=== PATIENT | female | born 2000 | race Caucasian/White ===

== ENCOUNTER 2020-01-27 12:42 | Emergency (ER) | payer SELFPAY ==
[2020-01-27] MEDS ORDERED: Lorazepam 2 MG/ML VIAL ONE (13:06)
[2020-01-27] MEDS ORDERED: Acetaminophen 325 MG TAB ONE (14:00)
[2020-01-27] MEDS ORDERED: Ondansetron ODT 4 MG TAB ONE (14:00)
[2020-01-27 14:14] LABS: Bilirubin Negative (Negative); Blood, Urine Negative (Negative); Clarity Turbid (Clear); Glucose, Urine (Dipstick) Normal (Negative); Ketone, Urine 40 mg/dL (Negative); Leukocyte 75 Leu/uL (Negative); Nitrite Negative (Negative); Pregnancy Test - Urine (BHCG) Negative (Negative); Pregu Control Background? CLEAR/WHITE (CLR/WHITE); Pregu Control Bar Appear? YES (CONTROL BAR); Protein, Urine (Dipstick) 50 mg/dL (Neg-Trace); RBC/HPF 0-3 HPF (0-3); Specific Gravity 1.021 (1.002-1.036); Specific Gravity, Urine 1.021 (1.002-1.036); Urobilinogen Normal mg/dL (Less than 2); pH, Urine 6.5 (5.0-9.0)
[2020-01-27 14:15] LABS: Bacteria/HPF 1+ HPF (None Seen)
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
== END 2020-01-27 14:46 | disposition home or self-care (01) ==
LOC: ERS 12:42 → EEVIPCON 12:42 → ERS 14:46
DX: S06.9X9A Unspecified intracranial injury with loss of consciousness of unspecified duration, initial encounter (principal); F41.9 Anxiety disorder, unspecified; Z79.899 Other long term (current) drug therapy; Y04.8XXA Assault by other bodily force, initial encounter
CPT/HCPCS: 70450; 72125; 81003; 81015; 81025; 96372; J2060; Q0162